=== PATIENT | female | born 1995 ===

== ENCOUNTER → 2018-05-14 00:01 | Emergency (ER) | payer BC | END | disposition left against medical advice (07) | LOC: C.ER 00:01 | DX: Z02.89 Encounter for other administrative examinations (principal); T78.40XA Allergy, unspecified, initial encounter ==

== ENCOUNTER 2018-09-08 21:46 | Emergency (ER) | payer BC ==
[2018-09-08 21:52] VITALS: BP 110/78; PULSE 72; TEMP 98.1; O2SAT 100
[2018-09-08] MEDS ORDERED: Amoxicillin-Clav 500-125 mg Tab PO STA (22:18)
[2018-09-08] MEDS ORDERED: Amoxicillin-Clav 500-125 mg Tab PO ONE (22:23)
--- NOTE | 2018-09-08 22:39 | C.PDOC ---
History Of Present Illness 23 year old female, 18 weeks , presents to the ED c/o left earache for the past 3 days. Patient denies fever, chills, headache, nausea, vomit, cough, runny nose sore throat, rash, vaginal bleeding. Time Seen by Provider: 09/08/18 21:58 Chief Complaint (Nursing): ENT Problem History Per: Patient History/Exam Limitations: None Onset/Duration Of Symptoms: Days (3) Current Symptoms Are (Timing): Still Present Quality (Ear): Pain W/Touch Severity: None Anticoagulant/Antiplatlet Use?: No Recent Aspirin Use: No Past Medical History Reviewed: Historical Data, Nursing Documentation, Vital Signs Vital Signs: Last Vital Signs Temp 98.1 F 09/08/18 21:48 Pulse 72 09/08/18 21:48 Resp 16 09/08/18 21:48 BP 110/78 09/08/18 21:48 Pulse Ox 100 09/08/18 21:48 - Medical History PMH: No Chronic Diseases Surgical History: Cholecystectomy Family History: States: Unknown Family Hx - Social History Hx Alcohol Use: No Hx Substance Use: No - Immunization History Hx Tetanus Toxoid Vaccination: No Hx Influenza Vaccination: No Hx Pneumococcal Vaccination: No Review Of Systems Constitutional: Negative for: Fever, Chills ENT: Positive for: Ear Pain, Ear Discharge. Negative for: Nose Discharge, Nose Congestion, Throat Pain, Throat Swelling Respiratory: Negative for: Cough, Shortness of Breath Gastrointestinal: Negative for: Nausea, Vomiting, Diarrhea Genitourinary: Negative for: Vaginal Bleeding Skin: Negative for: Rash Neurological: Negative for: Weakness, Numbness Physical Exam - Physical Exam Appears: Non-toxic, No Acute Distress Skin: Normal Color, Warm, Dry Head: Atraumatic, Normacephalic, No Swelling (facial or auricular) Eye(s): bilateral: Normal Inspection Ear(s): Left: TM Erythema (and mild effusion in the left ear canal), Other (no outer ear swelling), Right: Normal Nose: No Discharge Oral Mucosa: Moist Throat: Normal, No Erythema, No Exudate Neck: Normal ROM, Supple, No Other (swelling) Chest: Symmetrical Cardiovascular: Rhythm Regular Respiratory: Normal Breath Sounds, No Rales, No Rhonchi, No Wheezing Gastrointestinal/Abdominal: Normal Exam, No Tenderness, Other (gravid) Extremity: Normal ROM Neurological/Psych: Oriented x3, Normal Speech, Normal Cognition Gait: Steady ED Course And Treatment O2 Sat by Pulse Oximetry: 100 (On RA) Pulse Ox Interpretation: Normal Progress Note: Plan: - tylenol 975 mg PO. - Augmentin 1 tab PO. Patient was given first dose of antibiotics in the ED and given prescription to continue at home along with Tylenol for pain. Patient undertands and return precautions were also discussed. Patient was advised to follow up with PMD for further evaluation. Disposition Counseled Patient/Family Regarding: Diagnosis, Need For Followup, Rx Given - Disposition Referrals: Soto Lang MD [Staff Provider] - Disposition: HOME/ ROUTINE Disposition Time: 22:35 Condition: STABLE Additional Instructions: Take all medications as directed Avoid water in the ears Return to ER if worse Prescriptions: Acetaminophen 650 mg PO Q4H #30 capsule Amoxicillin/Clavulanate [Augmentin 500 MG-125 MG] 1 tab PO TID #21 tab Instructions: Ear Infections (Otitis Media) (DC) Forms: [employer] (Italian) Print Language: BELARUSIAN - Clinical Impression Clinical Impression: Otitis media - 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 - Scribe Statement The provider has reviewed the documentation as recorded by the Scribe Kendell Pantoja All medical record entries made by the [facility] were at my direction and personally dictated by me. I have reviewed the chart and agree that the record accurately reflects my personal performance of the history, physical exam, medical decision making, and the department course for this patient. I have also personally directed, reviewed, and agree with the discharge instructions and di sposition.
[2018-09-08 23:48] VITALS: RESP 20
== END 2018-09-08 23:47 | disposition home or self-care (01) ==
LOC: C.ER 21:46
DX: H66.92 Otitis media, unspecified, left ear (principal)